=== PATIENT | male | born 1940 | race Caucasian/White ===

== ENCOUNTER 2022-08-09 15:46 | Emergency (ER) | payer MEDICARE, SELFPAY ==
[2022-08-09] VITALS (7 sets, daily range): BP systolic 134–155; BP diastolic 74–85; PULSE 62–76; RESP 17–18; TEMP 36.2–36.4; O2SAT 95–97
--- NOTE | ~2022-08-09 | CT_ITS ---
EXAMINATION: CT brain wo con DATE: 08/09/2022 16:15 INDICATION: Altered level of consciousness. TECHNIQUE: Computed tomography (CT) of the head was performed without intravenous contrast. The mA wa s adjusted according to patient size. Iterative reconstruction technique was employed. The dose-lengt h product was 908.00 mGy-cm. COMPARISON: None FINDINGS: There is an acute infarct in left temporal parietal occipital region and left thalamus. The re is acute intraparenchymal hematoma within the infarct in the left occipital lobe. There are scatte red areas of low attenuation in the cerebral white matter. There is no abnormal mass lesion. There ar e small infarcts in the cerebellum bilaterally. The ventricles are normal in size. There is mucosal t hickening in the paranasal sinuses including near complete opacification of right sphenoid sinus with sclerosis of the wasserman of right sphenoid sinus, consistent with chronic sinusitis. The mastoid air c ells are normal. There are skin lesions at the scalp. IMPRESSION: 1. Acute ischemic infarcts involving the left temporal parietal occipital region and left thalamus wi th hemorrhagic transformation in the left occipital lobe. I called this result to Dr. Connors. 2. 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 3. Extensive nonspecific cerebral white matter disease, which likely represents chronic small vessel ischemic disease. Reviewed, dictated and finalized at location A. IMPRESSION: 1. Acute ischemic infarcts involving the left temporal parietal occipital regio n and left thalamus with hemorrhagic transformation in the left occipital lobe. I called this result to Dr. Connors. 2. 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 3. Extensive nonspecific cerebral white matter disease, which likely represents chronic small vessel ischemic disease.
--- NOTE | ~2022-08-09 | XR_ITS ---
EXAMINATION: XR chest 1V portable DATE: 08/09/2022 16:07 INDICATION: Altered level of consciousness. TECHNIQUE: A single frontal view of the chest was obtained. COMPARISON: Chest 2 views 05/23/17, chest CT 05/21/2017 FINDINGS: There is mild atelectasis in right lower lung zone. A calcified right lung nodule is consis tent with old granulomatous disease. No pleural effusion or pneumothorax. Cardiomegaly is noted. IMPRESSION: 1. Mild atelectasis in right lower lung zone. 2. Cardiomegaly. Reviewed, dictated and finalized at location A.
--- NOTE | 2022-08-09 15:51 | ECG_ITS ---
Measurements Intervals [place] Rate: 75 P: AR: 0 QRS: -48 QRSD: 110 T: 59 QT: 385 QTc: 432 Interpretive Statements ATRIAL FIBRILLATION WITH ABERRANT CONDUCTION OR VENTRICULAR PREMATURE COMPLEXES INFERIOR MYOCARDIAL INFARCTION , PROBABLY OLD [40+ ms Q WAVE AND/OR ST/T ABNORMALITY IN II/aVF] NO PREVIOUS ECG AVAILABLE FOR COMPARISON Electronically Signed On 08-09-2022 16:15:35 CDT by Francheska Justin M.D.
--- NOTE | 2022-08-09 15:54 | ED.AMS ---
HPI - Altered Mental Status General Chief Complaint: Altered Mental Status Stated Complaint: unresponsive History of Present Illness HPI narrative: Pt presents via EMS from [facility]. Pt there after suffering CVA with right sided deficit. Pt normally oriented x2 and able to follow commands. Pt took meds this morning and sometime after this was not responding and was difficult to arouse. Pt sent to the ER this afternoon for evaluation. Related Data Home Medications Medication Instructions Recorded Confirmed apixaban 2.5 mg tablet (Eliquis) 2.5 mg PO BID 06/26/22 08/04/22 Basaglar KwikPen U-100 Insulin 15 units subcut QHS 08/04/22 08/04/22 Novolog FlexPen U-100 Insulin 20 units subcut TIDWMEAL 08/04/22 08/04/22 amlodipine 10 mg tablet 10 mg PO DAILY 08/04/22 08/04/22 atorvastatin 40 mg tablet 40 mg PO QHS 08/04/22 08/04/22 hydralazine 100 mg tablet 100 mg PO TID 08/04/22 08/04/22 lidocaine 5 % topical patch 2 patch transdermal DAILY 08/04/22 08/04/22 (Lidoderm) metoprolol tartrate 50 mg tablet 50 mg PO BID 08/04/22 08/04/22 quetiapine 25 mg tablet (Seroquel) 25 mg PO DAILY 08/04/22 08/04/22 terazosin 1 mg capsule 1 mg PO DAILY 08/04/22 08/04/22 Allergies Allergy/AdvReac Type Severity Reaction Status Date / Time No Known Allergies Allergy Verified 06/26/22 13:22 Review of Systems Review of Systems: ROS unobtainable: Yes unobtainable due to mental status [facility] Family History Family History Mother Diabetes mellitus Hypertension Father Patient's father is in good health Other Family history of cardiovascular disease Family history of elevated blood lipids Social History Social History Smoking status: Never smoker Alcohol intake: never Substance use: never Lack of Transportation: No Lack of Food: Never True Current Housing: I Have Housing Concerned About Future Housing: No Difficulty Paying Gas/Electric Bills: No Difficulty Paying for Meds: No Currently Unemployed: No Spiritual care concerns: No Exam Const: General: no acute distress Nutritional Appearance: obese Limitations: altered mental status Other: pt not following commands or answering questions Eyes: Conjunctivae: conjunctivae normal Pupils: Equal, round and reactive pupils present Neck: Neck: normal visual inspection and no meningeal signs Chest: Chest palpation & inspection: normal inspection of the chest Resp: Effort & Inspection: normal respiratory effort Auscultation: clear to auscultation bilaterally Cardio: Rate: regular rate Rhythm: regular rhythm GI: GI Palp: Yes Soft to palpation Auscultation: normal bowel sounds Skin: General skin exam: normal color Wounds: no wounds Neuro: Other: unresponsive and not following commands Extrem: General: no clubbing, cyanosis or edema Course Vital Signs Vital signs: Vital Signs Temperature 97.5 F L 08/09/22 15:47 Pulse Rate 62 08/09/22 15:47 Respiratory Rate 17 08/09/22 15:47 Blood Pressure 134/80 08/09/22 15:47 Pulse Oximetry 97 08/09/22 15:47 Oxygen Delivery Room Air 08/09/22 15:47 Temperature 97.1 F L 08/09/22 15:59 Pulse Rate 69 08/09/22 17:19 Respiratory Rate 18 08/09/22 17:19 Blood Pressure 155/85 H 08/09/22 17:19 Pulse Oximetry 95 08/09/22 17:19 Oxygen Delivery Room Air 08/09/22 15:47 MDM - Altered Mental Status MDM Narrative Medical decision making narrative: Pt sent from rehab with altered LOC since this am. Will get head CT with recent CVA hx and a fib and do septic work up with labs UA and cxr. Pt on blood thinner. CT shows acute infarct with hemmorhhagic component left occipital region, cxr labs ua look ok. discussed with dr morales at [facility] stroke service will accept time sensitive transfer to [facility] ER. Said can start nicardapine to titrate SBP under 150 (154 now). Di
[2022-08-09 16:08] LABS: Basophils Absolute Auto 0.1 K/mm3 (0.0-0.1); Basophils Percent Auto 0.4 % (0.2-1.2); Eosinophils Absolute Auto 0.3 K/mm3 (0-0.3); Eosinophils Percent Auto 1.9 % (0-4.4); Hemoglobin 12.4 g/dL (14.0-18.0); Immature Granulocyte Percent A 0.7 % (0-0.5); Lymphocytes Absolute Auto 0.78 K/mm3 (0.9-3.2); Lymphocytes Percent Auto 5.6 % (18.3-44.2); Mean Corpuscular Hemoglobin 28.3 pg (26-34); Mean Corpuscular Volume 91.3 fl (80-100); Mean Platelet Volume 11.5 fl (7.4-10.4); Monocytes Absolute Auto 1.4 K/mm3 (0.1-0.6); Neutrophils Absolute Auto 11.4 K/mm3 (1.3-6.7); Neutrophils Percent Auto 81.4 % (45.5-73.1); Platelet Count Result 263 k/mm3 (150-375); Red Blood Count 4.38 M/mm3 (4.6-6.20)
[2022-08-09 16:16] LABS: Lactic Acid Reflex 0.7 mmol/L (0.7-2.0)
[2022-08-09 16:17] LABS: INR 1.2; Prothrombin Time 14.9 Seconds (11.1-14.7)
[2022-08-09 16:18] LABS: Alanine Aminotransferase 43 U/L (6-50); Albumin Level 3.7 g/dL (3.5-5.1); Alkaline Phosphatase 106 U/L (38-126); Anion Gap 6 mmol/L (8-16); Aspartate Amino Transferase 33 U/L (17-59); Bilirubin,Total 0.8 mg/dL (0.2-1.3); Blood Urea Nitrogen 55 mg/dL (9-20); Calcium 10.2 mg/dL (8.4-10.2); Carbon Dioxide 31 mmol/L (22-30); Chloride 104 mmol/L (98-107); Estimated CRCL calculation 40 ml/min; Estimated Glomerular Filt Rate 39; Glucose 156 mg/dL (65-110); Partial Thromboplastin Time 36.3 SECONDS (22.3-36.8); Potassium 4.6 mmol/L (3.4-5.0); Sodium 141 mmol/L (137-145)
[2022-08-09 16:35] LABS: Troponin I 0.025 ng/mL (0.000-0.034)
[2022-08-09 16:40] LABS: Appearance Urine Clear (Clear); Bacteria Urine None Seen /hpf; Bilirubin Urine Negative (Negative); Blood Urine Negative (Negative); Color Urine Yellow (Yellow); Glucose Urine UA Negative (Negative); Ketones Urine Negative (Negative); Leukocyte Esterase Ur Negative LEU/UL (Negative); Nitrate Urine Negative (Negative); Non Pathogenic Casts 0-2; Protein Urine 2+ mg/dL (Negative); RBC Urine 0-2 /hpf (0-2); Specific Grav Ur 1.016 (1.001-1.035); Squamous Epithelial Cell Urine None seen /hpf (Few); Urobilinogen Urine 0.2 mg/dL (<2.0); WBC Urine 0-5 /hpf
[2022-08-09] MEDS: niCARdipine 20 MG/200 ML 20 MG/200 ML BAG 50 MG IV CONT (17:17)
[2022-08-09 17:32] LABS: Add Urine Microscopic? YES
[2022-08-10 14:25] LABS: Glucose Point of Care 154 mg/dl (65-105)
== END 2022-08-09 17:22 | disposition short-term general hospital (02) ==
PROVIDERS: Emergency Provider Emergency Medicine; PCP Family Medicine
DX: I61.9 Nontraumatic intracerebral hemorrhage, unspecified (principal); I48.91 Unspecified atrial fibrillation; E11.9 Type 2 diabetes mellitus without complications; Z79.01 Long term (current) use of anticoagulants; Z79.4 Long term (current) use of insulin; R94.31 Abnormal electrocardiogram [ECG] [EKG]; I51.7 Cardiomegaly; R90.82 White matter disease, unspecified
CPT/HCPCS: 36415; 70450; 71045; 80053; 81001; 82948; 83605; 84443; 84484; 85025; 85610; 85730; 87040; 93005; 96374; 99285